=== PATIENT | female | born 1995 | race Caucasian/White ===

== ENCOUNTER → 2017-09-17 | Outpatient (CLI) | payer OTHER | LOC: M.CT 16:40 | DX: K04.7 Periapical abscess without sinus (principal); G50.1 Atypical facial pain ==

== ENCOUNTER → 2017-12-26 | Outpatient (CLI) | payer OTHER | LOC: M.ULTRA 12-23 09:00 | DX: N39.0 Urinary tract infection, site not specified (principal); R10.9 Unspecified abdominal pain; R35.0 Frequency of micturition ==